=== PATIENT | female | born 1990 | race Caucasian/White ===

== ENCOUNTER 2017-05-20 22:56 | Inpatient (IN) | payer SELFPAY ==
[~2017-05-20] VITALS: Ht 175.3 cm; Wt 104.3 kg
[~2017-05-20 22:56] MED LIST: ALPR1TAB2 PO; HYDR1TAB10 PO; OXYC1TAB7 PO; VANC250C11 PO
[2017-05-21] VITALS (23 sets, daily range): BP systolic 10–138; BP diastolic 46–72
[2017-05-21] MEDS: PROPOFOL 100 ML IV PRN ×3 (00:29→08:25)
[2017-05-21] MEDS: IV NORMAL SALINE 1000ML BAG 1,000 ML IV SCH ×2 (00:41→14:05)
[2017-05-21 04:55] LABS: BASO # 0.1 x10^3/uL (0.0-0.2); BASO % 1 % (0-3); EOS % 1 % (0-3); HEMATOCRIT 40.2 % (36.0-47.0); HEMOGLOBIN 13.3 g/dL (12.0-15.5); LYMPH # 2.3 x10^3/uL (1.0-4.8); LYMPH % 22 % (24-48); MEAN CORPUSCULAR HEMOGLOBIN 32 pg (25-35); MEAN CORPUSCULAR HGB CONC 33 g/dL (31-37); MEAN CORPUSCULAR VOLUME 96 fL (79-100); MONO % 10 % (0-9); NEUT % 66 % (31-73); PLATELET COUNT 243 x10^3/uL (140-400); RED BLOOD COUNT 4.18 x10^6/uL (3.50-5.40); RED CELL DISTRIBUTION WIDTH 14.3 % (11.5-14.5); WHITE BLOOD COUNT 10.3 x10^3/uL (4.0-11.0)
[2017-05-21 05:25] LABS: ALBUMIN 3.6 g/dL (3.4-5.0); ALBUMIN/GLOBULIN RATIO 0.9 (1.0-1.7); CALCIUM 8.2 mg/dL (8.5-10.1); CREATININE 0.7 mg/dL (0.6-1.0); GFR 99.6; POTASSIUM 3.8 mmol/L (3.5-5.1); TOTAL BILIRUBIN 0.4 mg/dL (0.2-1.0); TOTAL PROTEIN 7.8 g/dL (6.4-8.2)
--- NOTE | 2017-05-21 08:24 | RAD ---
Indication respiratory failure. A single view of the chest was obtained. Comparison is made to an examination over 7 years ago. Endotracheal tube is appropriately positioned above the heath. A nasogastric tube has its tip beyond the mid body of the stomach. The heart, pulmonary vessels and mediastinum appear normal. A focal infiltrate in either lung is not seen. There is no pleural fluid. No pneumothorax is seen. IMPRESSION: Appropriately positioned endotracheal and nasogastric tubes. No focal process seen in the chest
[2017-05-21] MEDS ORDERED: ONDANSETRON PF 4 MG/2 ML VIAL. IV PRN (10:30)
--- NOTE | 2017-05-21 10:56 | PDOC ---
Provider Note Provider Note dictated ОЛЬГА ROWAN MD May 21, 2017 10:56
[2017-05-21 11:32] LABS: HCO3 ABG 20 mmol/L (21-28); PCO2 ABG 25 mmHg (35-46); PH ABG 7.52 (7.35-7.45); PO2 ABG 199 mmHg (85-108); SAT O2 ABG 99 % (92-99)
[2017-05-21 11:46] LABS: FIO2 ABG 40
--- NOTE | 2017-05-21 12:23 | CONS ---
DATE OF CONSULTATION: ATTENDING PHYSICIAN: Dr. Tucker. REASON FOR CONSULTATION: Respiratory failure, toxic encephalopathy. HISTORY OF PRESENT ILLNESS: The patient is 27 years old who presented to [facility] with altered mental status. She did drank some alcohol. Her urine drug screen was positive for benzos, marijuana and alcohol. She also reportedly had a seizure. Her alcohol level was 108. The patient was intubated in the ER. Her initial blood gases showed a pH of 7.27, pCO2 of 49, pO2 of 186, bicarbonate 23 on 100% FiO2 post-intubation. Chest x-ray shows no acute infiltrates. Currently, she is awake, following commands on assist control mode. She ____ yes and no to questions. PAST MEDICAL HISTORY: History of alcohol use. ____. Questionable history of seizure disorder. PAST SURGICAL HISTORY: No recent surgeries. ALLERGIES: CODEINE. MEDICATIONS: Reviewed as listed in the MRAD. SOCIAL HISTORY: History of alcohol use. PHYSICAL EXAMINATION: GENERAL: She is awake, following commands. VITAL SIGNS: Stable. NECK: Supple. LUNGS: Clear. CARDIOVASCULAR: Regular ____. ABDOMEN: Soft. EXTREMITIES: With no pitting edema. LABORATORY DATA: Reviewed. White cell count ____, hemoglobin , platelets of 243. BUN 8 and creatinine 0.7. Albumin 3.6. IMPRESSION: 1. Acute respiratory failure, hypercapnic type secondary to acute toxic encephalopathy. 2. Acute toxic encephalopathy related to questionable seizure/alcohol abuse/marijuana use. RECOMMENDATIONS: 1. She is doing well on current assist control mode. She is awake, following commands. I will put her on a CPAP trial and if ABGs are adequate, we will proceed with extubation. 2. We will get detailed history about any history of seizure disorder. 3. The patient will be counseled regarding cessation of substance abuse. 4. Discussed with the patient's sister at the bedside. Discussed with RN and RT. Critical care time 35 minutes. ОЛЬГА ROWAN MD DR: KEANU/aki JOB#: [id number] / [id number]
--- NOTE | 2017-05-21 12:52 | PDOC2 ---
NEUROLOGY CONSULT Date of Admission Date of Admission DATE: 05/21/17 TIME: 12:44 Reason for Consult Reason for Consult: Seizures Referring Physician Referring Physician: Dr. Beavers Source Source: Caregiver, Chart review, Patient History of Present Illness History of Present Illness The patient is a 27-year-old right-handed female admitted to [facility] emergency department last night with all the mental status and seizure activity. She was very combative. I looked over the notes. CT of the head was negative. The patient would appear to have convulsive activity and then suddenly stopped and appear lucid. She ended up requiring intubation. She relates the history of pseudoseizures. She says it she was evaluated here as well as at . She was on anticonvulsant for a short amount of time, and says that she had also to side effects. She takes Valium twice a day for anxiety and is also on Wellbutrin and sertraline. She does not think she was under any particular stress yesterday. She does emit to marijuana use occasionally as well as using alcohol yesterday. She was extubated about a half-hour before my exam. Past Medical History Pulmonary: Previously Intubated CENTRAL NERVOUS SYSTEM: Seizure Psych: Anxiety, Bipolar, Depression Past Surgical History Past Surgical History: No pertinent history Family History Family History: No pertinent hx (No history of seizures) Social History Social History Engaged, works at a car wash, occasional marijuana, occasional alcohol, occasional tobacco. Current Medications Current Medications Current Medications Lorazepam (Ativan) 2 mg PRN Q1HR PRN IV ANXIETY / AGITATION Last administered on 05/21/17 06:10; Start 05/21/17 at 00:30 Propofol 100 ml @ 0 mls/hr CONT PRN IV SEE I/O RECORD Last administered on 08:25; Start 05/21/17 at 00:30 Sodium Chloride 1,000 ml @ 75 mls/hr [id number] IV Last administered on 05/21/17 00:41; Start 05/21/17 at 00:45 Ondansetron HCl (Zofran) 4 mg PRN Q6HRS PRN IV NAUSEA/VOMITING Last administered on 05/21/17 10:34; Start 05/21/17 at 10:30 Bupropion HCl (Wellbutrin Xl) 150 mg DAILY PO ; Start 05/21/17 at 13:00 Diazepam (Valium) 10 mg BID PO ; Start 05/21/17 at 13:00 Sertraline HCl (Zoloft) 50 mg QHS PO ; Start 05/21/17 at 21:00 Active Scripts Active Vicoprofen 200-7.5 Mg Tab (Hydrocodone/Ibuprofen) 1 Each Tablet 1 Each PO Q4HRS PRN Reported Vancocin Hcl (Vancomycin Hcl) 250 Mg Capsule 250 Mg PO Oxycodone-Acetaminophen 5-325 (Oxycodone Hcl/Acetaminophen) 1 Each Tablet 1 Each PO Xanax (Alprazolam) 1 Mg Tablet 1 Mg PO Allergies Allergies: Coded Allergies: codeine (Verified Allergy, Intermediate, 05/20/17) ROS Review of System Negative for fevers, chills, weight loss, shortness of breath, chest pain, indigestion, hematochezia, melena, dysuria. Full 14-point review systems is negative. Physical Exam Physical Examination PHYSICAL EXAMINATION: Vital signs: see above. General appearance is normal and in no acute distress. HEENT: Normocephalic and nontraumatic. Eyes, nose, ears, and throat are unremarkable. No tongue trauma Neck is supple. No lymphadenopathy. No bruits are heard over the carotid artery. No crepitus. NEUROLOGICAL EXAMINATION: Mental Status Examination: Alert. Oriented to time, place, and person. Answers questions and follows commends. Pupils are equal round and reactive to light and accommodation. Funduscopic exam: No papilledema. Extraocular movements are intact. Visual field exam shows no defect on the direct confrontation. No motor or sensory deficits on the facial exam. Uvula in the midline and the soft palate elevated symmetrically. No deviation of the tongue to any direction. Gross hearing is normal. Shoulder shrug normal. Muscle tone is normal. Muscle strength is 5. Deep tendon reflexes are 2+ all around. Plantar reflex is with flexion response bilaterally. Mqobsn-kc-[id number] test performance is accurate. Tandem walk test is accurate. Alternative movements are accurate. Romberg test is negative. Gait is normal. Sensory exam shows no deficits. No cerebellar signs are elicited. Vitals VITALS Vital Signs Date Time Temp Pulse Resp B/P (MAP) Pulse Ox O2 Delivery O2 Flow Rate FiO2 05/21/17 12:00 Room Air 05/21/17 07:23 100 05/21/17 06:00 93 16 110/60 (77) 05/21/17 04:00 97.8 97.8 Labs Labs Laboratory Tests Test 05/21/17 04:45 05/21/17 11:25 White Blood Count 10.3 x10^3/uL (4.0-11.0) Red Blood Count 4.18 x10^6/uL (3.50-5.40) Hemoglobin 13.3 g/dL (12.0-15.5) Hematocrit 40.2 % (36.0-47.0) Mean Corpuscular Volume 96 fL (79-100) Mean Corpuscular Hemoglobin 32 pg (25-35) Mean Corpuscular Hemoglobin Concent 33 g/dL (31-37) Red Cell Distribution Width 14.3 % (11.5-14.5) Platelet Count 243 x10^3/uL (140-400) Neutrophils (%) (Auto) 66 % (31-73) Lymphocytes (%) (Auto) 22 % (24-48) Monocytes (%) (Auto) 10 % (0-9) Eosinophils (%) (Auto) 1 % (0-3) Basophils (%) (Auto) 1 % (0-3) Neutrophils # (Auto) 6.8 x10^3uL (1.8-7.7) Lymphocytes # (Auto) 2.3 x10^3/uL (1.0-4.8) Monocytes # (Auto) 1.1 x10^3/uL (0.0-1.1) Eosinophils # (Auto) 0.1 x10^3/uL (0.0-0.7) Basophils # (Auto) 0.1 x10^3/uL (0.0-0.2) Sodium Level 142 mmol/L (136-145) Potassium Level 3.8 mmol/L (3.5-5.1) Chloride Level 107 mmol/L (98-107) Carbon Dioxide Level 25 mmol/L (21-32) Anion Gap 10 (6-14) Blood Urea Nitrogen 8 mg/dL (7-20) Creatinine 0.7 mg/dL (0.6-1.0) Estimated GFR (Cockcroft-Gault) 99.6 BUN/Creatinine Ratio 11 (6-20) Glucose Level 79 mg/dL (70-99) Calcium Level 8.2 mg/dL (8.5-10.1) Total Bilirubin 0.4 mg/dL (0.2-1.0) Aspartate Amino Transf (AST/SGOT) 194 U/L (15-37) Alanine Aminotransferase (ALT/SGPT) 478 U/L (14-59) Alkaline Phosphatase 81 U/L (46-116) Total Protein 7.8 g/dL (6.4-8.2) Albumin 3.6 g/dL (3.4-5.0) Albumin/Globulin Ratio 0.9 (1.0-1.7) O2 Saturation 99 % (92-99) Arterial Blood pH 7.52 (7.35-7.45) Arterial Blood pCO2 at Patient Temp 25 mmHg (35-46) Arterial Blood pO2 at Patient Temp 199 mmHg (85-108) Arterial Blood HCO3 20 mmol/L (21-28) Arterial Blood Base Excess -1 mmol/L (-3-3) FiO2 40 Laboratory Tests Test 05/21/17 04:45 05/21/17 11:25 White Blood Count 10.3 x10^3/uL (4.0-11.0) Red Blood Count 4.18 x10^6/uL (3.50-5.40) Hemoglobin 13.3 g/dL (12.0-15.5) Hematocrit 40.2 % (36.0-47.0) Mean Corpuscular Volume 96 fL (79-100) Mean Corpuscular Hemoglobin 32 pg (25-35) Mean Corpuscular Hemoglobin Concent 33 g/dL (31-37) Red Cell Distribution Width 14.3 % (11.5-14.5) Platelet Count 243 x10^3/uL (140-400) Neutrophils (%) (Auto) 66 % (31-73) Lymphocytes (%) (Auto) 22 % (24-48) Monocytes (%) (Auto) 10 % (0-9) Eosinophils (%) (Auto) 1 % (0-3) Basophils (%) (Auto) 1 % (0-3) Neutrophils # (Auto) 6.8 x10^3uL (1.8-7.7) Lymphocytes # (Auto) 2.3 x10^3/uL (1.0-4.8) Monocytes # (Auto) 1.1 x10^3/uL (0.0-1.1) Eosinophils # (Auto) 0.1 x10^3/uL (0.0-0.7) Basophils # (Auto) 0.1 x10^3/uL (0.0-0.2) Sodium Level 142 mmol/L (136-145) Potassium Level 3.8 mmol/L (3.5-5.1) Chloride Level 107 mmol/L (98-107) Carbon Dioxide Level 25 mmol/L (21-32) Anion Gap 10 (6-14) Blood Urea Nitrogen 8 mg/dL (7-20) Creatinine 0.7 mg/dL (0.6-1.0) Estimated GFR (Cockcroft-Gault) 99.6 BUN/Creatinine Ratio 11 (6-20) Glucose Level 79 mg/dL (70-99) Calcium Level 8.2 mg/dL (8.5-10.1) Total Bilirubin 0.4 mg/dL (0.2-1.0) Aspartate Amino Transf (AST/SGOT) 194 U/L (15-37) Alanine Aminotransferase (ALT/SGPT) 478 U/L (14-59) Alkaline Phosphatase 81 U/L (46-116) Total Protein 7.8 g/dL (6.4-8.2) Albumin 3.6 g/dL (3.4-5.0) Albumin/Globulin Ratio 0.9 (1.0-1.7) O2 Saturation 99 % (92-99) Arterial Blood pH 7.52 (7.35-7.45) Arterial Blood pCO2 at Patient Temp 25 mmHg (35-46) Arterial Blood pO2 at Patient Temp 199 mmHg (85-108) Arterial Blood HCO3 20 mmol/L (21-28) Arterial Blood Base Excess -1 mmol/L (-3-3) FiO2 [address] head performed last night at [facility] was negative. 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 Recommendations: I renewed her psychiatric medications although the Valium may interfere with the EEG results. EEG Brain MRI I asked the nurse to avoid giving Ativan and instead call me as I do not want to sedate her again with the seizures. I again believe they are not epileptic. Holding off on starting anticonvulsants. I discussed the nature of the diagnosis of psychogenic nonepileptic seizures with the patient. In no way do I imply that she is consciously faking her seizures, but instead this is a physical manifestation of psychiatric disease which is very difficult to treat. Thank you for letting me help of the patient's care. JOSE ELIAS ANDREW MD May 21, 2017 12:52
[2017-05-21] MEDS ORDERED: diazePAM 5 MG TABLET PO SCH (13:00)
[2017-05-21] MEDS: buPROPion XL 150 MG TAB.ER.24H. PO SCH (13:00)
[2017-05-21] MEDS ORDERED: GADOBUTROL 10 MMOL/10 ML VIAL IV ONE (18:00)
[2017-05-21] MEDS: ACETAMINOPHEN 325 MG TABLET. PO PRN (19:13)
--- NOTE | 2017-05-21 20:09 | HP ---
ADMIT DATE: 05/21/2017 CHIEF COMPLAINT: Seizure. HISTORY OF PRESENT ILLNESS: The patient is a pleasant middle-aged female who has previous seizures, but has not had one for a year or so. She suddenly had another seizure. She has now been intubated and admitted to the ICU. I discussed the case with the nurse . We will plan to consult Neurology and we are going to hopefully extubate her today. We have consulted Pulmonary Medicine. PAST MEDICAL HISTORY: Seizures and hepatitis C. ALLERGIES: CODEINE. FAMILY HISTORY: Seizures. SOCIAL HISTORY: She does not drink, smoke or take drugs. MEDICATIONS: Reviewed, please refer to the MRAD. REVIEW OF SYSTEMS: Unobtainable, the patient is sedated and on the vent. PHYSICAL EXAMINATION: VITAL SIGNS: Temperature afebrile, pulse 98, respirations 18, blood pressure 113/60. GENERAL: She is sedated on the vent, but she is waking up trying to pull her tube out. HEART: Distant S1, S2. LUNGS: Diminished. ABDOMEN: Soft. EXTREMITIES: No edema. SKIN: No rashes. ENDOCRINE: No thyromegaly. LYMPHATICS: No cervical nodes. HEMATOPOIETIC: No bruising. LABORATORY DATA: White count 10, hemoglobin 13, platelets 343. Electrolytes normal. AST and ALT are a little high at 194 and 478 respectively. Calcium 8.2. ASSESSMENT AND PLAN: Seizures with the incidental finding of transaminitis. The patient has been admitted on the vent. We hope to extubate her later today. Regarding her transaminases, we will consult GI. Regarding the seizures, consult Dr. Rubin. Resume other home medicines. PROGNOSIS: Guarded. ABNER MOODY DO DR: LEI/aki JOB#: [id number] / [id number]
--- NOTE | 2017-05-21 20:28 | RAD ---
MRI brain with and without contrast dated 05/21/2017. Comparison made to 11/08/2011. CLINICAL INDICATION: Seizures. TECHNIQUE: Routine multiplanar multisequence MR imaging of brain performed with and without the administration of 9 cc Gadavist. FINDINGS: Ventricles and sulci are within normal limits for age. No midline shift or mass effect. Brain parenchyma is of normal signal intensity. No hemorrhage or extra-axial collection. Posterior fossa and brainstem unremarkable. There is some minimal spotty increased FLAIR signal abnormality in the right temporal lobe subcortical white matter, nonspecific. No evidence of restricted diffusion abnormality. The major intracranial flow-voids are present. Postcontrast imaging shows no abnormal enhancement or mass. Mild mucosal thickening of the bilateral ethmoid and left frontal sinus and left sphenoid sinus. Mastoid air cells are clear. No apparent calvarial abnormality. IMPRESSION: 1. No evidence of acute intracranial hemorrhage, mass or acute infarct. 2. Minimal spotty increased FLAIR signal abnormality in the subcortical white matter of the right temporal lobe, nonspecific. This could be related to patient's known seizures. Other inflammatory processes or early small vessel ischemic changes not excluded. 3. Mild sinus disease. Electronically signed by: Prem Barth MD (05/21/2017 8:25 PM) [facility]
[2017-05-21] MEDS ORDERED: SERTRALINE 50 MG TABLET. PO SCH (21:00)
[2017-05-21] MEDS ORDERED: ALPRAZolam 1 MG TABLET PO SCH (21:00)
[2017-05-22] VITALS (10 sets, daily range): BP systolic 89–116; BP diastolic 51–70
[2017-05-22] MEDS: IV NORMAL SALINE 1000ML BAG 1,000 ML IV SCH ×2 (03:25→09:30)
[2017-05-22 04:44] LABS: BASO # 0.1 x10^3/uL (0.0-0.2); BASO % 1 % (0-3); EOS % 2 % (0-3); HEMATOCRIT 37.3 % (36.0-47.0); HEMOGLOBIN 12.5 g/dL (12.0-15.5); LYMPH # 2.3 x10^3/uL (1.0-4.8); LYMPH % 36 % (24-48); MEAN CORPUSCULAR HEMOGLOBIN 32 pg (25-35); MEAN CORPUSCULAR HGB CONC 34 g/dL (31-37); MEAN CORPUSCULAR VOLUME 95 fL (79-100); MONO % 10 % (0-9); NEUT % 51 % (31-73); PLATELET COUNT 198 x10^3/uL (140-400); RED BLOOD COUNT 3.92 x10^6/uL (3.50-5.40); RED CELL DISTRIBUTION WIDTH 13.9 % (11.5-14.5); WHITE BLOOD COUNT 6.3 x10^3/uL (4.0-11.0)
[2017-05-22 05:13] LABS: CALCIUM 8.4 mg/dL (8.5-10.1); CREATININE 0.6 mg/dL (0.6-1.0); POTASSIUM 3.6 mmol/L (3.5-5.1)
[2017-05-22] MEDS ORDERED: CALCIUM POLYCARBOPHIL 625 MG TABLET PO SCH ×2 (09:00→09:30)
--- NOTE | 2017-05-22 09:12 | PDOC2 ---
GI CONSULT Reason For Consult: Elevated transaminases HPI: HPI: 27 y/o female transferred from [facility] w/ seizure activity and elevated alcohol level, was intubated and now extubated and tolerating PO per RN. Followed by neuro, imaging below, pt has refused EEG. GI consult re: transaminitis; bili 0.4, AST 194, ALT 478, Alk Phos 81. Relates h/o Hep C since 10/2013, h/o IVDU and tattoos, no blood transfusions. Also, bother parents have Hep C. Has been told liver enzymes elevated in the past, recalls no previous imaging. Says drinks 1 Sycuan-A-Cj each week. Additionally, she has several other GI complaints including occasional nausea and vomiting acid, heartburn treated ineffectively w/ Pepto, occasional diffuse abdominal pain possibly related to constipation, and irregular bowel habits x 2 months - mostly 1 loose stool every morning, sometimes incontinence. Takes fiber pills which help. No previous EGD or colonoscopy. PMH: PMH: Hep C, GERD, seizures, anxiety/depression, bipolar disorder, x 3, right leg surgery, ureteral stents/removal, tonsillectomy, wisdom teeth extraction FH: Family History: Other (parents have Hep C) Social History: ALCOHOL: other (says 1 beer/Sycuan-a-cj weekly) Drugs: Marijuana, Other (h/o IVDU) ROS: GEN: Denies fevers, chills, sweats HEENT: Denies blurred vision, sore throat CV: Denies chest pain RESP: Denies shortness of air, cough GI: Per HPI : Denies hematuria, dysuria ENDO: Denies weight changes NEURO: +seizure activity MSK: Denies weakness, joint pain/swelling SKIN: Denies jaundice, pruritus Vitals: Vitals: Vital Signs Date Time Temp Pulse Resp B/P (MAP) Pulse Ox O2 Delivery O2 Flow Rate FiO2 05/22/17 07:00 80 16 103/57 (72) 98 Room Air 05/22/17 04:00 98.6 98.6 Labs: Labs: Laboratory Tests Test 05/21/17 11:25 05/22/17 04:30 O2 Saturation 99 % (92-99) Arterial Blood pH 7.52 (7.35-7.45) Arterial Blood pCO2 at Patient Temp 25 mmHg (35-46) Arterial Blood pO2 at Patient Temp 199 mmHg (85-108) Arterial Blood HCO3 20 mmol/L (21-28) Arterial Blood Base Excess -1 mmol/L (-3-3) FiO2 40 White Blood Count 6.3 x10^3/uL (4.0-11.0) Red Blood Count 3.92 x10^6/uL (3.50-5.40) Hemoglobin 12.5 g/dL (12.0-15.5) Hematocrit 37.3 % (36.0-47.0) Mean Corpuscular Volume 95 fL (79-100) Mean Corpuscular Hemoglobin 32 pg (25-35) Mean Corpuscular Hemoglobin Concent 34 g/dL (31-37) Red Cell Distribution Width 13.9 % (11.5-14.5) Platelet Count 198 x10^3/uL (140-400) Neutrophils (%) (Auto) 51 % (31-73) Lymphocytes (%) (Auto) 36 % (24-48) Monocytes (%) (Auto) 10 % (0-9) Eosinophils (%) (Auto) 2 % (0-3) Basophils (%) (Auto) 1 % (0-3) Neutrophils # (Auto) 3.2 x10^3uL (1.8-7.7) Lymphocytes # (Auto) 2.3 x10^3/uL (1.0-4.8) Monocytes # (Auto) 0.6 x10^3/uL (0.0-1.1) Eosinophils # (Auto) 0.1 x10^3/uL (0.0-0.7) Basophils # (Auto) 0.1 x10^3/uL (0.0-0.2) Sodium Level 139 mmol/L (136-145) Potassium Level 3.6 mmol/L (3.5-5.1) Chloride Level 106 mmol/L (98-107) Carbon Dioxide Level 22 mmol/L (21-32) Anion Gap 11 (6-14) Blood Urea Nitrogen 7 mg/dL (7-20) Creatinine 0.6 mg/dL (0.6-1.0) Estimated GFR (Cockcroft-Gault) 119.0 Glucose Level 90 mg/dL (70-99) Calcium Level 8.4 mg/dL (8.5-10.1) Allergies: Coded Allergies: codeine (Verified Allergy, Intermediate, 05/20/17) Medications: Current Medications Medications (Trade) Dose Ordered Sig/Meghan Route PRN Reason Start Time Stop Time Status Last Admin Dose Admin Ondansetron HCl (Zofran) 4 mg PRN Q6HRS PRN IV NAUSEA/VOMITING 05/21/17 10:30 05/21/17 10:34 Sertraline HCl (Zoloft) 50 mg QHS PO 05/21/17 21:00 05/21/17 20:56 Gadobutrol (Gadavist) 10 mmol 1X ONCE IV 05/21/17 18:00 05/21/17 18:01 DC 05/21/17 17:59 Acetaminophen (Tylenol) 650 mg PRN Q6HRS PRN PO Pain 05/21/17 18:45 05/21/17 19:13 Alprazolam (Xanax) 1 mg QHS PO 05/21/17 21:00 05/21/17 20:56 Imaging: Imaging: CXR 05/21/17 IMPRESSION: Appropriately positioned endotracheal and nasogastric tubes. No focal process seen in the chest. Brain MRI 05/21/17 IMPRESSION: 1. No evidence of acute intracranial hemorrhage, mass or acute infarct. 2. Minimal spotty increased FLAIR signal abnormality in the subcortical white matter of the right temporal lobe, nonspecific. This could be related to patient 's known seizures. Other inflammatory processes or early small vessel ischemic changes not excluded. 3. Mild sinus disease. PE: GEN: NAD HEENT: Atraumatic, PERRL LUNGS: CTAB anteriorly HEART: RRR ABD: NABS, S/ND/NT EXTREMITY: No edema SKIN: No rashes, no jaundice NEURO/PSYCH: A & O 3 A/P: A/P: Seizures, resp failure -brain MRI as above -extubated Abnormal LFTs -labs per HPI H/o Hep C, alcohol use Heartburn -unimproved w/ Pepto -some nausea and vomiting "acid" Irregular bowel habits -describes abd pain 2/2 constipation, also "diarrhea" in the morning -fiber pills help -- Check abd US further eval liver. Confirm Hep C diagnosis w/ hep panel. Start PPI and FiberCon. Probably drinks more than she lets on - encouraged abstinence/AA. MARIA VICTORIA VU May 22, 2017 09:12
[2017-05-22] MEDS ORDERED: PANTOPRAZOLE 40 MG TABLET.DR. PO SCH (09:30)
[2017-05-22] MEDS: buPROPion XL 150 MG TAB.ER.24H. PO SCH (09:36)
[2017-05-22] MEDS: ACETAMINOPHEN 325 MG TABLET. PO PRN (09:45)
--- NOTE | 2017-05-22 09:56 | RAD ---
Indication:Hepatitis C. Abdominal pain none Grayscale images of the abdomen were obtained. Comparison none Liver:No focal mass is seen in the visualized liver. Gallbladder:Normal. The common bile duct diameter of approximately 3 mm is normal Spleen:Normal Pancreas as visualized normal Kidneys:Normal Abdominal aorta and IVC:Normal Ancillary findings:None Impression:Normal study
--- NOTE | 2017-05-22 11:06 | PDOC ---
PULMONARY PROGRESS NOTES Subjective EXTUBATED 05/21 DOING WELL ON RA Vitals Vital Signs Date Time Temp Pulse Resp B/P (MAP) Pulse Ox O2 Delivery O2 Flow Rate FiO2 05/22/17 08:00 Room Air 05/22/17 07:00 80 16 103/57 (72) 98 05/22/17 04:00 98.6 98.6 General: Alert, No acute distress Lungs: Clear Cardiovascular: S1 Abdomen: Soft Neuro Exam: Alert Extremities: No Edema Skin: Warm Labs Laboratory Tests Test 05/21/17 01:10 05/21/17 04:45 05/21/17 11:25 05/22/17 04:30 Nasal Screen MRSA (PCR) Negative (Negative) White Blood Count 10.3 x10^3/uL (4.0-11.0) 6.3 x10^3/uL (4.0-11.0) Red Blood Count 4.18 x10^6/uL (3.50-5.40) 3.92 x10^6/uL (3.50-5.40) Hemoglobin 13.3 g/dL (12.0-15.5) 12.5 g/dL (12.0-15.5) Hematocrit 40.2 % (36.0-47.0) 37.3 % (36.0-47.0) Mean Corpuscular Volume 96 fL (79-100) 95 fL (79-100) Mean Corpuscular Hemoglobin 32 pg (25-35) 32 pg (25-35) Mean Corpuscular Hemoglobin Concent 33 g/dL (31-37) 34 g/dL (31-37) Red Cell Distribution Width 14.3 % (11.5-14.5) 13.9 % (11.5-14.5) Platelet Count 243 x10^3/uL (140-400) 198 x10^3/uL (140-400) Neutrophils (%) (Auto) 66 % (31-73) 51 % (31-73) Lymphocytes (%) (Auto) 22 % (24-48) 36 % (24-48) Monocytes (%) (Auto) 10 % (0-9) 10 % (0-9) Eosinophils (%) (Auto) 1 % (0-3) 2 % (0-3) Basophils (%) (Auto) 1 % (0-3) 1 % (0-3) Neutrophils # (Auto) 6.8 x10^3uL (1.8-7.7) 3.2 x10^3uL (1.8-7.7) Lymphocytes # (Auto) 2.3 x10^3/uL (1.0-4.8) 2.3 x10^3/uL (1.0-4.8) Monocytes # (Auto) 1.1 x10^3/uL (0.0-1.1) 0.6 x10^3/uL (0.0-1.1) Eosinophils # (Auto) 0.1 x10^3/uL (0.0-0.7) 0.1 x10^3/uL (0.0-0.7) Basophils # (Auto) 0.1 x10^3/uL (0.0-0.2) 0.1 x10^3/uL (0.0-0.2) Sodium Level 142 mmol/L (136-145) 139 mmol/L (136-145) Potassium Level 3.8 mmol/L (3.5-5.1) 3.6 mmol/L (3.5-5.1) Chloride Level 107 mmol/L (98-107) 106 mmol/L (98-107) Carbon Dioxide Level 25 mmol/L (21-32) 22 mmol/L (21-32) Anion Gap 10 (6-14) 11 (6-14) Blood Urea Nitrogen 8 mg/dL (7-20) 7 mg/dL (7-20) Creatinine 0.7 mg/dL (0.6-1.0) 0.6 mg/dL (0.6-1.0) Estimated GFR (Cockcroft-Gault) 99.6 119.0 BUN/Creatinine Ratio 11 (6-20) Glucose Level 79 mg/dL (70-99) 90 mg/dL (70-99) Calcium Level 8.2 mg/dL (8.5-10.1) 8.4 mg/dL (8.5-10.1) Total Bilirubin 0.4 mg/dL (0.2-1.0) Aspartate Amino Transf (AST/SGOT) 194 U/L (15-37) Alanine Aminotransferase (ALT/SGPT) 478 U/L (14-59) Alkaline Phosphatase 81 U/L (46-116) Total Protein 7.8 g/dL (6.4-8.2) Albumin 3.6 g/dL (3.4-5.0) Albumin/Globulin Ratio 0.9 (1.0-1.7) O2 Saturation 99 % (92-99) Arterial Blood pH 7.52 (7.35-7.45) Arterial Blood pCO2 at Patient Temp 25 mmHg (35-46) Arterial Blood pO2 at Patient Temp 199 mmHg (85-108) Arterial Blood HCO3 20 mmol/L (21-28) Arterial Blood Base Excess -1 mmol/L (-3-3) FiO2 40 Laboratory Tests Test 05/21/17 11:25 05/22/17 04:30 O2 Saturation 99 % (92-99) Arterial Blood pH 7.52 (7.35-7.45) Arterial Blood pCO2 at Patient Temp 25 mmHg (35-46) Arterial Blood pO2 at Patient Temp 199 mmHg (85-108) Arterial Blood HCO3 20 mmol/L (21-28) Arterial Blood Base Excess -1 mmol/L (-3-3) FiO2 40 White Blood Count 6.3 x10^3/uL (4.0-11.0) Red Blood Count 3.92 x10^6/uL (3.50-5.40) Hemoglobin 12.5 g/dL (12.0-15.5) Hematocrit 37.3 % (36.0-47.0) Mean Corpuscular Volume 95 fL (79-100) Mean Corpuscular Hemoglobin 32 pg (25-35) Mean Corpuscular Hemoglobin Concent 34 g/dL (31-37) Red Cell Distribution Width 13.9 % (11.5-14.5) Platelet Count 198 x10^3/uL (140-400) Neutrophils (%) (Auto) 51 % (31-73) Lymphocytes (%) (Auto) 36 % (24-48) Monocytes (%) (Auto) 10 % (0-9) Eosinophils (%) (Auto) 2 % (0-3) Basophils (%) (Auto) 1 % (0-3) Neutrophils # (Auto) 3.2 x10^3uL (1.8-7.7) Lymphocytes # (Auto) 2.3 x10^3/uL (1.0-4.8) Monocytes # (Auto) 0.6 x10^3/uL (0.0-1.1) Eosinophils # (Auto) 0.1 x10^3/uL (0.0-0.7) Basophils # (Auto) 0.1 x10^3/uL (0.0-0.2) Sodium Level 139 mmol/L (136-145) Potassium Level 3.6 mmol/L (3.5-5.1) Chloride Level 106 mmol/L (98-107) Carbon Dioxide Level 22 mmol/L (21-32) Anion Gap 11 (6-14) Blood Urea Nitrogen 7 mg/dL (7-20) Creatinine 0.6 mg/dL (0.6-1.0) Estimated GFR (Cockcroft-Gault) 119.0 Glucose Level 90 mg/dL (70-99) Calcium Level 8.4 mg/dL (8.5-10.1) Medications Active Scripts Medications Dose Route/Sig Max Daily Dose Days Date Category Vicoprofen 200-7.5 Mg Tab (Hydrocodone/Ibuprofen) 1 Each Tablet 1 Each PO Q4HRS PRN 10/04/13 Rx Vancocin Hcl (Vancomycin Hcl) 250 Mg Capsule 250 Mg PO 10/04/13 Reported Oxycodone-Acetaminophen 5-325 (Oxycodone Hcl/Acetaminophen) 1 Each Tablet 1 Each PO 10/04/13 Reported Xanax (Alprazolam) 1 Mg Tablet 1 Mg PO 10/04/13 Reported Impression . 1. Acute respiratory failure, hypercapnic type secondary to acute toxic encephalopathy. 2. Acute toxic encephalopathy related to seizure/alcohol abuse/marijuana use. Plan . 1. She is doing well on RA 2. seizure per Neuro 3. The patient was counseled regarding cessation of substance abuse. 4. will sign off ОЛЬГА ROWAN MD May 22, 2017 11:06
--- NOTE | 2017-05-22 11:18 | PDOC ---
PROGRESS NOTES Chief Complaint Chief Complaint Seizures AMS Hepatitis C History of Present Illness History of Present Illness Patient was extubated yesterday. Appeared alert. MRI from yesterday was negative. Neurology to perform EEG later today. Patient reports that she doesn't usually drink heavily, but happened to be drinking the day she was brought in. Patient expressed that she has been in a low of stress due to payments on a new car, rent, and losing a job recently. Vitals Vitals Vital Signs Date Time Temp Pulse Resp B/P (MAP) Pulse Ox O2 Delivery O2 Flow Rate FiO2 05/22/17 08:00 Room Air 05/22/17 07:00 80 16 103/57 (72) 98 05/22/17 04:00 98.6 98.6 Physical Exam General: Alert, No acute distress Heart: Regular rate, No murmurs Lungs: Clear, Other (no r/r/w) Abdomen: Normal bowel sounds, No tenderness Extremities: No clubbing, No edema Skin: No rashes, No significant lesion Labs LABS Laboratory Tests Test 05/21/17 11:25 05/22/17 04:30 O2 Saturation 99 % (92-99) Arterial Blood pH 7.52 (7.35-7.45) Arterial Blood pCO2 at Patient Temp 25 mmHg (35-46) Arterial Blood pO2 at Patient Temp 199 mmHg (85-108) Arterial Blood HCO3 20 mmol/L (21-28) Arterial Blood Base Excess -1 mmol/L (-3-3) FiO2 40 White Blood Count 6.3 x10^3/uL (4.0-11.0) Red Blood Count 3.92 x10^6/uL (3.50-5.40) Hemoglobin 12.5 g/dL (12.0-15.5) Hematocrit 37.3 % (36.0-47.0) Mean Corpuscular Volume 95 fL (79-100) Mean Corpuscular Hemoglobin 32 pg (25-35) Mean Corpuscular Hemoglobin Concent 34 g/dL (31-37) Red Cell Distribution Width 13.9 % (11.5-14.5) Platelet Count 198 x10^3/uL (140-400) Neutrophils (%) (Auto) 51 % (31-73) Lymphocytes (%) (Auto) 36 % (24-48) Monocytes (%) (Auto) 10 % (0-9) Eosinophils (%) (Auto) 2 % (0-3) Basophils (%) (Auto) 1 % (0-3) Neutrophils # (Auto) 3.2 x10^3uL (1.8-7.7) Lymphocytes # (Auto) 2.3 x10^3/uL (1.0-4.8) Monocytes # (Auto) 0.6 x10^3/uL (0.0-1.1) Eosinophils # (Auto) 0.1 x10^3/uL (0.0-0.7) Basophils # (Auto) 0.1 x10^3/uL (0.0-0.2) Sodium Level 139 mmol/L (136-145) Potassium Level 3.6 mmol/L (3.5-5.1) Chloride Level 106 mmol/L (98-107) Carbon Dioxide Level 22 mmol/L (21-32) Anion Gap 11 (6-14) Blood Urea Nitrogen 7 mg/dL (7-20) Creatinine 0.6 mg/dL (0.6-1.0) Estimated GFR (Cockcroft-Gault) 119.0 Glucose Level 90 mg/dL (70-99) Calcium Level 8.4 mg/dL (8.5-10.1) Review of Systems Review of Systems Patient complains of pain around clavicle. Patient complains of weakness. Assessment and Plan Assessmemt and Plan Assessment: Seizures AMS Hepatitis C Plan: 1. Continue ICU monitoring 2. Neurology to perform EEG later today 3. Counseled on stress management 4. Prescribed Z-pack for sinusitis 5. Prescribed Codeine for pain 6. Probable discharge, if ok with neurology Problems: Comment Review of Relevant I have reviewed the following items ryanne (where applicable) has been applied. Labs Laboratory Tests Test 05/21/17 01:10 05/21/17 04:45 05/21/17 11:25 05/22/17 04:30 Nasal Screen MRSA (PCR) Negative (Negative) White Blood Count 10.3 x10^3/uL (4.0-11.0) 6.3 x10^3/uL (4.0-11.0) Red Blood Count 4.18 x10^6/uL (3.50-5.40) 3.92 x10^6/uL (3.50-5.40) Hemoglobin 13.3 g/dL (12.0-15.5) 12.5 g/dL (12.0-15.5) Hematocrit 40.2 % (36.0-47.0) 37.3 % (36.0-47.0) Mean Corpuscular Volume 96 fL (79-100) 95 fL (79-100) Mean Corpuscular Hemoglobin 32 pg (25-35) 32 pg (25-35) Mean Corpuscular Hemoglobin Concent 33 g/dL (31-37) 34 g/dL (31-37) Red Cell Distribution Width 14.3 % (11.5-14.5) 13.9 % (11.5-14.5) Platelet Count 243 x10^3/uL (140-400) 198 x10^3/uL (140-400) Neutrophils (%) (Auto) 66 % (31-73) 51 % (31-73) Lymphocytes (%) (Auto) 22 % (24-48) 36 % (24-48) Monocytes (%) (Auto) 10 % (0-9) 10 % (0-9) Eosinophils (%) (Auto) 1 % (0-3) 2 % (0-3) Basophils (%) (Auto) 1 % (0-3) 1 % (0-3) Neutrophils # (Auto) 6.8 x10^3uL (1.8-7.7) 3.2 x10^3uL (1.8-7.7) Lymphocytes # (Auto) 2.3 x10^3/uL (1.0-4.8) 2.3 x10^3/uL (1.0-4.8) Monocytes # (Auto) 1.1 x10^3/uL (0.0-1.1) 0.6 x10^3/uL (0.0-1.1) Eosinophils # (Auto) 0.1 x10^3/uL (0.0-0.7) 0.1 x10^3/uL (0.0-0.7) Basophils # (Auto) 0.1 x10^3/uL (0.0-0.2) 0.1 x10^3/uL (0.0-0.2) Sodium Level 142 mmol/L (136-145) 139 mmol/L (136-145) Potassium Level 3.8 mmol/L (3.5-5.1) 3.6 mmol/L (3.5-5.1) Chloride Level 107 mmol/L (98-107) 106 mmol/L (98-107) Carbon Dioxide Level 25 mmol/L (21-32) 22 mmol/L (21-32) Anion Gap 10 (6-14) 11 (6-14) Blood Urea Nitrogen 8 mg/dL (7-20) 7 mg/dL (7-20) Creatinine 0.7 mg/dL (0.6-1.0) 0.6 mg/dL (0.6-1.0) Estimated GFR (Cockcroft-Gault) 99.6 119.0 BUN/Creatinine Ratio 11 (6-20) Glucose Level 79 mg/dL (70-99) 90 mg/dL (70-99) Calcium Level 8.2 mg/dL (8.5-10.1) 8.4 mg/dL (8.5-10.1) Total Bilirubin 0.4 mg/dL (0.2-1.0) Aspartate Amino Transf (AST/SGOT) 194 U/L (15-37) Alanine Aminotransferase (ALT/SGPT) 478 U/L (14-59) Alkaline Phosphatase 81 U/L (46-116) Total Protein 7.8 g/dL (6.4-8.2) Albumin 3.6 g/dL (3.4-5.0) Albumin/Globulin Ratio 0.9 (1.0-1.7) O2 Saturation 99 % (92-99) Arterial Blood pH 7.52 (7.35-7.45) Arterial Blood pCO2 at Patient Temp 25 mmHg (35-46) Arterial Blood pO2 at Patient Temp 199 mmHg (85-108) Arterial Blood HCO3 20 mmol/L (21-28) Arterial Blood Base Excess -1 mmol/L (-3-3) FiO2 40 Laboratory Tests Test 05/21/17 11:25 05/22/17 04:30 O2 Saturation 99 % (92-99) Arterial Blood pH 7.52 (7.35-7.45) Arterial Blood pCO2 at Patient Temp 25 mmHg (35-46) Arterial Blood pO2 at Patient Temp 199 mmHg (85-108) Arterial Blood HCO3 20 mmol/L (21-28) Arterial Blood Base Excess -1 mmol/L (-3-3) FiO2 40 White Blood Count 6.3 x10^3/uL (4.0-11.0) Red Blood Count 3.92 x10^6/uL (3.50-5.40) Hemoglobin 12.5 g/dL (12.0-15.5) Hematocrit 37.3 % (36.0-47.0) Mean Corpuscular Volume 95 fL (79-100) Mean Corpuscular Hemoglobin 32 pg (25-35) Mean Corpuscular Hemoglobin Concent 34 g/dL (31-37) Red Cell Distribution Width 13.9 % (11.5-14.5) Platelet Count 198 x10^3/uL (140-400) Neutrophils (%) (Auto) 51 % (31-73) Lymphocytes (%) (Auto) 36 % (24-48) Monocytes (%) (Auto) 10 % (0-9) Eosinophils (%) (Auto) 2 % (0-3) Basophils (%) (Auto) 1 % (0-3) Neutrophils # (Auto) 3.2 x10^3uL (1.8-7.7) Lymphocytes # (Auto) 2.3 x10^3/uL (1.0-4.8) Monocytes # (Auto) 0.6 x10^3/uL (0.0-1.1) Eosinophils # (Auto) 0.1 x10^3/uL (0.0-0.7) Basophils # (Auto) 0.1 x10^3/uL (0.0-0.2) Sodium Level 139 mmol/L (136-145) Potassium Level 3.6 mmol/L (3.5-5.1) Chloride Level 106 mmol/L (98-107) Carbon Dioxide Level 22 mmol/L (21-32) Anion Gap 11 (6-14) Blood Urea Nitrogen 7 mg/dL (7-20) Creatinine 0.6 mg/dL (0.6-1.0) Estimated GFR (Cockcroft-Gault) 119.0 Glucose Level 90 mg/dL (70-99) Calcium Level 8.4 mg/dL (8.5-10.1) Medications Current Medications Lorazepam (Ativan) 2 mg PRN Q1HR PRN IV ANXIETY / AGITATION Last administered on 8/9/17at 16:05; Start 05/21/17 at 00:30; Stop 05/21/17 at 16:40; Status DC Propofol 100 ml @ 0 mls/hr CONT PRN IV SEE I/O RECORD Last administered on 08:25; Start 05/21/17 at 00:30; Stop 05/21/17 at 19:46; Status DC Sodium Chloride 1,000 ml @ 75 mls/hr [id number] IV Last administered on 05/21/17 00:41; Start 05/21/17 at 00:45 Ondansetron HCl (Zofran) 4 mg PRN Q6HRS PRN IV NAUSEA/VOMITING Last administered on 05/21/17 10:34; Start 05/21/17 at 10:30 Bupropion HCl (Wellbutrin Xl) 150 mg DAILY PO Last administered on 05/22/17 09 :36; Start 05/21/17 at 13:00 Diazepam (Valium) 10 mg BID PO ; Start 05/21/17 at 13:00; Stop 05/21/17 at 19:46; Status DC Sertraline HCl (Zoloft) 50 mg QHS PO Last administered on 05/21/17 20:56; Start 05/21/17 at 21:00 Gadobutrol (Gadavist) 10 mmol 1X ONCE IV Last administered on 05/21/17 17:59; Start 05/21/17 at 18:00; Stop 05/21/17 at 18:01; Status DC Acetaminophen (Tylenol) 650 mg PRN Q6HRS PRN PO Pain Last administered on 09:45; Start 05/21/17 at 18:45 Alprazolam (Xanax) 1 mg QHS PO Last administered on 05/21/17 20:56; Start at 21:00 Calcium Polycarbophil (Fibercon) 525 mg DAILY PO ; Start 05/22/17 at 09:00; Stop 05/22/17 at 09:07; Status DC Pantoprazole Sodium (Protonix) 40 mg DAILYAC PO Last administered on 05/22/17 09:36; Start 05/22/17 at 09:30 Calcium Polycarbophil (Fibercon) 625 mg DAILY PO Last administered on t 09:45; Start 05/22/17 at 09:30 Active Scripts Active Vicoprofen 200-7.5 Mg Tab (Hydrocodone/Ibuprofen) 1 Each Tablet 1 Each PO Q4HRS PRN Reported Vancocin Hcl (Vancomycin Hcl) 250 Mg Capsule 250 Mg PO Oxycodone-Acetaminophen 5-325 (Oxycodone Hcl/Acetaminophen) 1 Each Tablet 1 Each PO Xanax (Alprazolam) 1 Mg Tablet 1 Mg PO Vitals/I & O Vital Sign - Last 24 Hours 05/21/17 05/21/17 05/21/17 05/21/17 12:00 12:00 16:00 16:00 Temp 98.3 98.5 98.3 98.5 Pulse 82 83 Resp 24 21 B/P (MAP) 10/60 (44) 121/55 (77) Pulse Ox 100 99 O2 Delivery Room Air Room Air Room Air Room Air 05/21/17 05/21/17 05/21/17 05/21/17 19:00 20:00 20:00 21:00 Temp 98.8 98.8 Pulse 97 81 81 Resp 22 22 22 B/P (MAP) 110/59 (76) 107/56 (73) 99/63 (75) Pulse Ox 99 99 99 O2 Delivery Room Air Room Air Room Air Room Air 05/21/17 05/21/17 05/21/17 05/22/17 22:00 23:00 23:59 00:00 Temp 98.1 98.1 Pulse 81 81 81 Resp 22 22 22 B/P (MAP) 107/56 (73) 107/61 (76) 105/61 (76) Pulse Ox 99 98 98 O2 Delivery Room Air Room Air Room Air Room Air 05/22/17 05/22/17 05/22/17 05/22/17 01:00 02:00 03:00 04:00 Temp 98.6 98.6 Pulse 80 80 81 72 Resp 20 22 22 22 B/P (MAP) 104/61 (75) 105/59 (74) 100/58 (72) 95/54 (68) Pulse Ox 98 99 99 98 O2 Delivery Room Air Room Air Room Air Room Air 05/22/17 05/22/17 05/22/17 05/22/17 04:00 05:04 06:06 07:00 Pulse 72 82 80 Resp 20 22 16 B/P (MAP) 89/51 (64) 116/70 (85) 103/57 (72) Pulse Ox 98 99 98 O2 Delivery Room Air Room Air Room Air Room Air 05/22/17 08:00 O2 Delivery Room Air Intake and Output 05/21/17 05/21/17 05/22/17 15:00 23:00 07:00 Intake Total 720 ml Output Total 350 ml Balance -350 ml 720 ml ABNER MOODY III DO May 22, 2017 11:17
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
[2017-05-22] MEDS ORDERED: ACET-704 PO (14:09)
[2017-05-22] MEDS ORDERED: AZIT1PAC PO (14:10)
[2017-05-22 23:11] LABS: HEP A IGM ABDY Negative (Negative)
== END 2017-05-22 15:00 | disposition home or self-care (01) | DRG 208 ==
LOC: 1 WEST ICU 23:55
PROVIDERS: ADMIT Internal Medicine Hematology & Oncology; ATTEND Internal Medicine Hematology & Oncology
PROC: 5A1935Z Respiratory Ventilation, Less than 24 Consecutive Hours (ICD-10-PCS; principal; 2017-05-20)
PROC: 0BH17EZ Insertion of Endotracheal Airway into Trachea, Via Natural or Artificial Opening (ICD-10-PCS; 2017-05-20)
DX: J96.02 Acute respiratory failure with hypercapnia (principal); G92 Toxic encephalopathy; F10.10 Alcohol abuse, uncomplicated; B19.20 Unspecified viral hepatitis C without hepatic coma; F12.90 Cannabis use, unspecified, uncomplicated; F31.9 Bipolar disorder, unspecified; F41.9 Anxiety disorder, unspecified; K21.9 Gastro-esophageal reflux disease without esophagitis; Y90.5 Blood alcohol level of 100-119 mg/100 ml; K59.00 Constipation, unspecified; Z88.5 Allergy status to narcotic agent; R56.9 Unspecified convulsions
CPT/HCPCS: 36415; 36600; 70553; 71010; 76700; 80048; 80053; 80074; 82805; 85027; 87641; 94003; A9585; J2060; J2405; J2704; J7030